=== PATIENT | female | born 2000 | race Caucasian/White ===

== ENCOUNTER 2018-03-17 12:36 | Emergency (ER) | payer MEDICAID ==
[2018-03-17] MEDS ORDERED: Lactated Ringer 1,000 ML IV ONE ×2 (13:09→14:22)
[2018-03-17 13:33] LABS: EOSINOPHILE ABSOLUTE 0.1 Th/cmm (0.1-0.4); LYMPHOCYTE ABSOLUTE 0.7 Th/cmm (1.5-3.0); MONOCYTE ABSOLUTE 0.7 Th/cmm (0.3-1.0)
[2018-03-17 13:36] LABS: % EOSINOPHILS 0.4 % (0.0-5.0); % LYMPHOCYTES 4.7 % (20.0-50.0); % MONOCYTES 4.5 % (2.0-10.0); % NEUTROPHILS 90.4 % (40.0-80.0); HEMATOCRIT 41.4 % (41.0-60); HEMOGLOBIN 14.1 gm/dL (12-16); MEAN CELL VOLUME 88.9 fl (81-100); MEAN CORPUSCULAR HEMOGLOBIN 30.4 pg (27.0-31.0); MEAN CORPUSCULAR HGB CONC 34.2 pg (28.0-36.0); MEAN PLATELET VOLUME 6.2 fl; NEUTROPHILE ABSOLUTE 13.8 Th/cmm (1.8-8.0); PLATELET COUNT 190 Th/cmm (150-400); RED BLOOD COUNT 4.65 Mil/cmm (3.80-5.10); RED CELL DISTRIBUTION WIDTH 11.8 % (11.5-20.0)
[2018-03-17 13:42] LABS: WHITE BLOOD COUNT 15.3 Th/cmm (4.8-10.8)
[2018-03-17 13:49] LABS: ALB/GLOB RATIO 2.2 (1.0-1.8); ALBUMIN 4.6 gm/dL (3.7-5.3); ALKALINE PHOSPHATASE 48 U/L (34-104); AMYLASE SERUM 39 U/L (29-103); BILIRUBIN,TOTAL 0.6 mg/dL (0.3-1.0); BUN - UREA NITROGEN 19 mg/dL (7-25); CALCIUM SERUM 9.2 mg/dL (8.6-10.3); CARBON DIOXIDE 21.7 mEq/L (21.0-31.0); CHLORIDE 105 mEq/L (98-107); CREATININE - SERUM 0.7 mg/dL (0.6-1.2); GFR AFRICAN-AMERICAN > 60.0 ml/min (>90); GFR NON AFRICAN-AMERICAN > 60.0 ml/min; GLUCOSE 102 mg/dL (70-105); LIPASE 27 U/L (11-82); MAGNESIUM 1.4 mg/dL (1.9-2.7); PHOSPHOROUS 3.7 mg/dL (2.5-5.0); POTASSIUM SERUM 3.7 mEq/L (3.5-5.1); SGOT 14 U/L (13-39); SGPT/ALT 8 U/L (7-52); SODIUM SERUM 136 mEq/L (136-145); TOTAL PROTEIN,SERUM 6.7 gm/dL (6.0-8.3)
[2018-03-17 14:26] LABS: AMYLASE SERUM 39 U/L (29-103); LIPASE 28 U/L (11-82)
[2018-03-17 14:52] LABS: URINE SOURCE CLEAN C
[2018-03-17 14:55] LABS: URINE BILIRUBIN NEGATIVE (NEGATIVE); URINE BLOOD NEGATIVE (NEGATIVE); URINE GLUCOSE (UA) NEGATIVE (NEGATIVE); URINE KETONE NEGATIVE (NEGATIVE); URINE LEUKOCYTE ESTERASE NEGATIVE (NEGATIVE); URINE NITRATE NEGATIVE (NEGATIVE); URINE PH 6.5 (4.6 - 8.0); URINE PROTEIN NEGATIVE (NEGATIVE); URINE UROBILINOGEN 0.2 E.U./dL (0.2 - 1.0)
[2018-03-17 14:59] LABS: URINE CLARITY CLEAR (CLEAR); URINE COLOR YELLOW; URINE MICROSCOPIC INDICATED? YES
[2018-03-17 15:01] LABS: URINE BACTERIA 2+ /hpf (NONE SEEN); URINE EPITHELIAL CELLS MODERATE /lpf (FEW); URINE RBC 0-2 /hpf (0-5)
[2018-03-17 15:42] LABS: AMPHETAMINE URINE NEGATIVE (NEGATIVE); BARBITURATES URINE NEGATIVE (NEGATIVE); BENZODIAZEPINES QUAL URINE NEGATIVE (NEGATIVE); CANNABINOID THC NEGATIVE (NEGATIVE); COCAINE METABOLITE QUAL URINE NEGATIVE (NEGATIVE); METHADONE URINE NEGATIVE (NEGATIVE); METHAMPHETAMINES QUAL URINE NEGATIVE (NEGATIVE); OPIATES (MORPHINE) QUAL. URINE NEGATIVE (NEGATIVE); PHENCYCLIDINE (PCP) URINE NEGATIVE (NEGATIVE); TRICYCLICS (TCA) QUAL. URINE NEGATIVE (NEGATIVE)
--- NOTE | 2018-04-15 11:58 | ER Physician Documentation ---
DATE OF SERVICE: 03/17/2018 HISTORY OF PRESENT ILLNESS: The patient is an otherwise healthy 17-year-old female who presents with complaint of nausea, vomiting and abdominal pain. Of note, her son is sick as well. She has not been able to keep down anything more than fluids. PAST MEDICAL HISTORY: Unremarkable. REVIEW OF SYSTEMS: Positive for nausea and vomiting, abdominal pain. PHYSICAL EXAMINATION: GENERAL: The patient appears slightly pale. LUNGS: Clear to auscultation bilaterally. COR: Regular rate and rhythm. No evidence of peritoneal signs. ABDOMEN: Nontender, nondistended. NEUROLOGIC: Nonfocal. LABORATORY DATA: Lab work was ordered on her and revealed that her amylase and lipase were normal. Her white count was a little bit elevated at 15.3. Her magnesium was a little bit low at 1.4. Urinalysis revealed 2+ bacteria with moderate epi, so this was considered contamination and the urine drug screen was negative. She felt much better after getting couple of liters of fluid. She was also given IV Toradol for pain, not to the pain that she had in the epigastrium. She was also given Pepcid and Zofran. ASSESSMENT AND PLAN: Her diagnoses on discharge were the following: Dehydration, viral gastroenteritis and nausea. She was discharged with 2 different medications, Zofran 4 mg ODT 1 p.o. every 8 hours #12 and ranitidine 150 mg 1 p.o. b.i.d. #60 with 3 refills. She was told to follow up with her primary care doctor for further evaluation. She felt 100% better after being rehydrated. [facility]# [id number]
== END 2018-03-17 16:02 | disposition home or self-care (01) ==
LOC: EDBD 12:36 → ER 12:36
DX: R11.2 Nausea with vomiting, unspecified (principal); R10.9 Unspecified abdominal pain
CPT/HCPCS: 99284; 96374; 96375; 36415; 83605; 80307; 85007; 85025; 87086; 81001; 82150 ×2; 83690 ×2; 83735; 84100; 80053; 87040; J1885; J2060; J3490; Z7502